=== PATIENT | female | born 1990 | race Hispanic/Latino ===

== ENCOUNTER 2019-01-30 09:56 | Emergency (ER) | payer OTHER ==
[~2019-01-30] VITALS: Ht 162.6 cm; Wt 87.4 kg
[2019-01-30] MEDS ORDERED: OMEP40CA97 PO (10:03)
[2019-01-30] MEDS ORDERED: NS 1,000 ML IV ONE (11:15)
[2019-01-30] MEDS ORDERED: PANTOPRAZOLE 40MG INJ (PROTONIX) (C9113) IV ONE (11:15)
[2019-01-30] MEDS ORDERED: ONDANSETRON 4 MG ORAL DISINTEGRATING TAB (Q0162 PER 1MG) PO ONE (11:15)
[2019-01-30 11:31] LABS: BASO % 0.5 % (0.0-1.0); EOS # 0.1 10^3/uL (0.0-0.5); EOS % 1.4 % (0.0-3.0); HEMATOCRIT 41.4 % (36.0-47.0); HEMOGLOBIN 13.6 g/dl (12.0-15.5); LYMPH # 2.5 10^3/uL (1.5-5.0); MEAN CORPUSCULAR HEMOGLOBIN 30.1 pg (27.0-33.0); MEAN CORPUSCULAR HGB CONC 32.9 g/dl (32.0-36.5); MEAN CORPUSCULAR VOLUME 91.6 fl (80.0-96.0); MONO # 0.4 10^3/uL (0.0-0.8); MONO % 5.7 % (0.0-5.0); NEUTROPHILS # 3.4 10^3/uL (1.5-8.5); NEUTROPHILS % 52.9 % (36.0-66.0); PLATELET COUNT, AUTOMATED 404 10^3/uL (150-450); RED BLOOD COUNT 4.52 10^6/uL (4.00-5.40); WHITE BLOOD COUNT 6.4 10^3/uL (4.0-10.0)
[2019-01-30] MEDS ORDERED: ONDANSETRON 4MG/2ML VIAL (J2405) IV ONE (11:45)
[2019-01-30 11:58] LABS: ALBUMIN 4.1 GM/DL (3.2-5.2); ALT/SGPT 44 U/L (12-78); BILIRUBIN,DIRECT < 0.1 MG/DL (0.0-0.2); BILIRUBIN,TOTAL 0.5 MG/DL (0.2-1.0); LIPASE 88 U/L (73-393); TOTAL PROTEIN 8.7 GM/DL (6.4-8.2)
--- NOTE | 2019-01-30 13:02 | REP ---
Right upper quadrant sonography: History: Upper abdomen pain. Findings: Scanning through right upper quadrant of the abdomen demonstrates a normal sized thin-walled gallbladder without evidence of stone or polyp. Common bile duct is normal measuring 0.6 cm in greatest diameter. Increased echogenicity is seen in the liver diffusely consistent with fatty infiltration. No focal liver lesion is seen. Limited views the pancreas show no abnormality. There is no evidence of ascites or right renal abnormality. The right kidney measures 10.9 x 6.4 x 4.6 cm. Impression: Fatty infiltration of the liver. Otherwise unremarkable right upper quadrant sonography. Electronically Signed by Baltazar Child MD 01/30/2019 02:20 P
[2019-01-30] MEDS ORDERED: ISOVUE-370 76% 100ML VIAL (Q9967) As Ordered ONE (13:09)
[2019-01-30] MEDS ORDERED: SUCR1SS PO (14:07)
[2019-01-30 14:10] VITALS: BP 126/79
--- NOTE | 2019-01-30 14:10 | REP ---
CT abdomen and pelvis with IV but without oral contrast: History: Upper abdomen pain. No comparison study. 100 mL of intravenous Isovue [address] findings: Digital preliminary qc manager radiograph shows a normal bowel gas pattern. The lung bases are clear on axial CT images. There is mild diffuse fatty infiltration of the liver. No focal liver lesion is seen. No abnormality is noted in the gallbladder. The pancreas is unremarkable. No adrenal lesion is seen. The kidneys enhance symmetrically and are morphologically intact. Small and large intestinal bowel loops are normal in the upper abdomen. Pelvic CT images show an IUD in good position within the uterus. No ovarian mass or cyst is seen. No pelvic adenopathy or free fluid is noted. The appendix is surgically absent. No evidence of free air or abnormal fluid collection. Impression: Patient is status post appendectomy. An IUD is seen in good position. There is mild diffuse fatty infiltration of the liver. Otherwise negative. Electronically Signed by Baltazar Child MD 01/30/2019 02:21 P
== END 2019-01-30 14:16 | disposition home or self-care (01) ==
LOC: M ED 09:56
DX: K21.9 Gastro-esophageal reflux disease without esophagitis (principal); K76.0 Fatty (change of) liver, not elsewhere classified; Z79.899 Other long term (current) drug therapy
CPT/HCPCS: 36415; 74177; 76705; 80047; 80076; 81001; 83690; 84702; 85025; 87086; 96361; 96374; 96375; 99284; C9113; J2405; Q9967